=== PATIENT | male | born 1970 | race African-American/Black ===

== ENCOUNTER 2017-01-31 12:26 | Emergency (ER) | payer MEDICAID ==
[~2017-01-31] VITALS: Ht 175.3 cm; Wt 80.0 kg
[2017-01-31] MEDS ORDERED: NITROGLYCERIN 0.4MG TABLET SL SL PRN (12:45)
[2017-01-31] MEDS ORDERED: ASPIRIN 81MG TABLET PO ONE (12:45)
[2017-01-31] MEDS ORDERED: LORAZEPAM 2MG/ML CPJ IV ONE (12:45)
[2017-01-31 12:53] LABS: BASOPHILS % 0.3 % (0.0-2.0); EOSINOPHILS % 1.9 % (0.0-5.0); HEMATOCRIT. 53.5 % (42.0-52.0); HEMOGLOBIN. 17.6 g/dL (14.0-18.0); LYMPHOCYTES % 31.9 % (20.0-50.0); MEAN CORPUSCULAR HGB CONC 32.9 g/dL (31.0-37.0); MEAN CORPUSCULAR VOLUME 82.2 fL (80.0-94.0); MEAN PLATELET VOLUME 10.9 fl (7.4-10.4); MONOCYTES % 7.4 % (2.0-8.0); NEUTROPHILS % 58.5 % (40.0-76.0); PLATELET 192 x1000/uL (130-400); RED BLOOD CELL COUNT 6.51 mill/uL (4.7-6.1); RED CELL DISTRIBUTION WIDTH 14.8 % (11.6-14.6); WHITE BLOOD COUNT 10.8 x1000/uL (4.5-11.0)
[2017-01-31 12:54] LABS: DIFFERENTIAL COMMENT 1
[2017-01-31 13:01] LABS: INR 1.4; PROTHROMBIN TIME 14.5 sec
[2017-01-31 13:04] LABS: ALBUMIN 4.3 g/dL (3.4-5.0); CALCIUM 9.5 mg/dL (8.5-10.1); CHLORIDE 103 mEq/L (98-107); INDEX HEMOLYSI 1 (1-3); INDEX ICTERIC 1 (1-4); INDEX LIPEMIC 1 (1-3)
[2017-01-31 13:05] LABS: ALANINE AMINOTRANSFERASE 20 IU/L (13-61); ANION GAP 16; CARBON DIOXIDE 27 mEq/L (21-32); ETHANOL BLOOD < 10 mg/dL; UREA NITROGEN BLOOD 10 mg/dL (7-21)
[2017-01-31 13:10] LABS: NT PRO B-TYPE NATRIURETIC PEP 15 pg/mL (5-125); TROPONIN I < 0.02 ng/mL (0.00-0.04); eGFR > 60 mL/min (>60)
[2017-01-31] MEDS ORDERED: IBUPROFEN 600MG TABLET PO ONE (17:00)
[2017-01-31 17:09] VITALS: BP 136/78
[2017-01-31] MEDS ORDERED: ACETAMINOPHEN 325MG TABLET PO ONE (17:15)
== END 2017-01-31 17:29 | disposition home or self-care (01) ==
LOC: ER 12:52
DX: R07.89 Other chest pain (principal)
CPT/HCPCS: 36415; 71010; 80053; 83880; 84484; 85025; 85610; 93005; 96374; 99285; G0482; J2060; Z7610